=== PATIENT | female | born 1945 | race Caucasian/White ===

== ENCOUNTER 2021-01-12 10:22 | Outpatient (CLI) | payer MEDICARE | END 2021-01-12 10:23 | disposition home or self-care (01) | LOC: CSHMAMMO 10:22 | PROVIDERS: ATTEND Family Medicine | DX: Z13.820 Encounter for screening for osteoporosis (principal); M85.852 Other specified disorders of bone density and structure, left thigh | CPT/HCPCS: 77080 ==

== ENCOUNTER 2023-03-23 10:13 | Outpatient (CLI) | payer MEDICARE | END 2023-03-23 10:14 | disposition home or self-care (01) | LOC: CSHMAMMO 10:13 | PROVIDERS: ATTEND Family Medicine | DX: Z13.820 Encounter for screening for osteoporosis (principal); Z78.0 Asymptomatic menopausal state | CPT/HCPCS: 77080 ==

== ENCOUNTER 2024-11-27 09:16 | Outpatient (CLI) | payer MEDICARE, OTHER | END 2024-11-27 09:17 | disposition home or self-care (01) | LOC: CSHMAMMO 09:16 | PROVIDERS: ATTEND Orthopaedic Surgery | DX: N64.59 Other signs and symptoms in breast (principal); R92.8 Other abnormal and inconclusive findings on diagnostic imaging of breast | CPT/HCPCS: 76642; 77066; G0279 ==

== ENCOUNTER 2024-12-25 10:23 | Outpatient (CLI) | payer MEDICARE, OTHER ==
[2024-12-25 11:35] LABS: Estimated GFR - POC 75.0
== END 2024-12-25 10:24 | disposition home or self-care (01) ==
LOC: CSHMRI 10:23
PROVIDERS: ATTEND Family Medicine
DX: N64.59 Other signs and symptoms in breast (principal); N60.41 Mammary duct ectasia of right breast; R92.8 Other abnormal and inconclusive findings on diagnostic imaging of breast; N63.21 Unspecified lump in the left breast, upper outer quadrant
CPT/HCPCS: 36415; 82565 ×2; C8908

== ENCOUNTER 2024-12-26 12:36 | Outpatient (CLI) | payer MEDICARE, OTHER | END 2024-12-26 12:37 | disposition home or self-care (01) | LOC: CSHULT 12:36 | PROVIDERS: ATTEND Family Medicine | DX: N63.21 Unspecified lump in the left breast, upper outer quadrant (principal) ==

== ENCOUNTER 2025-01-16 11:07 | Outpatient (CLI) | payer MEDICARE, OTHER ==
[2025-01-16 12:06] LABS: #Basophils 0.07 10x3/uL (0.0-0.2); #Eosinophils 0.21 10x3/uL (0.0-0.5); #Monocytes 0.79 10x3/uL (0.0-1.1); #Neutrophils 4.26 10x3/uL (1.5-8.4); %Basophils 0.9 % (0.0-2.0); %Eosinophils 2.8 % (0.0-6.0); %Lymphocytes 28.2 % (18.0-47.0); %Monocytes 10.6 % (0.0-10.0); %Neutrophils 57.4 % (40.0-75.0); Hematocrit 42.6 % (34.9-44.5); Hemoglobin 13.4 g/dL (12.0-15.5); Mean Corpuscular Hemoglobin 29.3 pg (27.0-33.0); Mean Corpuscular Volume 93.2 fL (81.6-98.3); Platelet Count 295 10x3/uL (150-450); Red Blood Cell (RBC) Count 4.57 10x6/uL (3.90-5.03); White Blood Cell (WBC) Count 7.44 10x3/uL (3.5-10.5)
[2025-01-16 13:11] LABS: Anion Gap 14 mmol/L (10-20); BUN (Urea Nitrogen) 14 mg/dL (9.8-20.1); Calc. Creatinine Clearance 0 mL/min (70-130); Calcium 9.3 mg/dL (7.8-10.44); Carbon Dioxide 21 mmol/L (23-31); Chloride 108 mmol/L (98-107); Glucose 82 mg/dL (83-110); Sodium 138 mmol/L (136-145)
[2025-01-16 14:16] LABS: Potassium 4.6 mmol/L (3.5-5.1)
== END 2025-01-16 11:08 | disposition home or self-care (01) ==
LOC: CSHLAB 11:07
PROVIDERS: ATTEND Surgery
DX: Z01.818 Encounter for other preprocedural examination (principal); N64.52 Nipple discharge
CPT/HCPCS: 80048; 85025; 93005; 93010

== ENCOUNTER 2025-02-05 13:50 | Outpatient (CLI) | payer MEDICARE | END 2025-02-05 13:51 | disposition home or self-care (01) | LOC: CSHULT 13:50 | PROVIDERS: ATTEND Family Medicine | DX: I51.7 Cardiomegaly (principal); I08.0 Rheumatic disorders of both mitral and aortic valves | CPT/HCPCS: 93306 ==